=== PATIENT | female | born 1980 | race Hispanic/Latino ===

== ENCOUNTER 2025-04-26 01:12 | Emergency (ER) | payer SELFPAY ==
[2025-04-26] MEDS ORDERED: Ketorolac Tromethamine 30 MG (1 mL) VIAL ONE (03:11)
== END 2025-04-26 03:31 | disposition home or self-care (01) ==
LOC: ERS 01:12
DX: S90.31XA Contusion of right foot, initial encounter (principal); S99.911A Unspecified injury of right ankle, initial encounter; E11.9 Type 2 diabetes mellitus without complications; X50.1XXA Overexertion from prolonged static or awkward postures, initial encounter
CPT/HCPCS: 96372; 99283; J1885